=== PATIENT | male | born 1965 | race Caucasian/White ===

== ENCOUNTER 2018-06-18 04:52 | Emergency (ER) | payer MEDICAID, OTHER ==
[~2018-06-18] VITALS: Ht 193 cm; Wt 136.3 kg
[2018-06-18] MEDS ORDERED: KETOROLAC 30 MG/1 ML ONE (05:13)
[2018-06-18] MEDS ORDERED: DEXAMETHASONE 4 MG TABLET ONE (05:14)
[2018-06-18] MEDS ORDERED: DEXAMETHASONE 4 MG/ML, 1ML PO ONE (05:30)
[2018-06-18] MEDS ORDERED: KETOROLAC 30 MG/1 ML IM ONE (05:30)
[2018-06-18 06:12] VITALS: BP 14/88
== END 2018-06-18 06:16 | disposition home or self-care (01) ==
LOC: ED 06:10
DX: J02.8 Acute pharyngitis due to other specified organisms (principal); B97.89 Other viral agents as the cause of diseases classified elsewhere; I10 Essential (primary) hypertension; E11.9 Type 2 diabetes mellitus without complications; F41.9 Anxiety disorder, unspecified; F32.9 Major depressive disorder, single episode, unspecified
CPT/HCPCS: 87081; 87880; 96372; 99284; J1100; J1885